=== PATIENT | female | born 1970 | race Caucasian/White ===

== ENCOUNTER 2023-11-29 17:11 | Emergency (ER) | payer OTHER ==
[2023-11-29 17:24] VITALS: TEMP 97.8; BMI 35.3
[2023-11-29 18:29] VITALS: BP 166/91; PULSE 65; RESP 19
[2023-11-29] MEDS ORDERED: valACYclovir HCL 500 MG TABLET (FP) PO ONE (18:38)
[2023-11-29] MEDS ORDERED: predniSONE 20 MG TABLET (UD) PO ONE (18:38)
[2023-11-29] MEDS ORDERED: ARTIFICIAL TEARS OPHTHALMIC DROPS OU ONE (18:38)
[2023-11-29] MEDS ORDERED: ACETAMINOPHEN 500 MG TABLET (FP) PO ONE (18:41)
[2023-11-29] MEDS ORDERED: predniSONE 20 MG TABLET (UD) ONE (18:46)
[2023-11-29] MEDS ORDERED: valACYclovir HCL 500 MG TABLET (FP) ONE (18:47)
[2023-11-29] MEDS ORDERED: ACETAMINOPHEN 325 MG TABLET (FP) ONE (18:47)
== END 2023-11-29 22:24 | disposition home or self-care (01) ==
LOC: JER 17:11
DX: R22.0 Localized swelling, mass and lump, head (principal); R09.81 Nasal congestion; R05.9 Cough, unspecified; R51.9 Headache, unspecified; G51.0 Bell's palsy
CPT/HCPCS: 70450-TC; 93005; 93010; 99284-25